=== PATIENT | female | born 1960 | race Two or more races ===

== ENCOUNTER 2025-08-17 14:17 | Emergency (ER) | payer SELFPAY ==
[~2025-08-17] VITALS: Ht 160 cm; Wt 86.2 kg
[2025-08-17 14:43] VITALS: TEMP 98.4
[2025-08-17] MEDS ORDERED: AZIT250T13 PO (15:57)
[2025-08-17] MEDS ORDERED: GUAI1TBM19 PO (15:57)
[2025-08-17] MEDS ORDERED: DOXY100T2 PO (15:57)
[2025-08-17 16:10] VITALS: BP 139/88; O2SAT 98
== END 2025-08-17 16:10 | disposition home or self-care (01) ==
LOC: ER 14:38
DX: J18.9 Pneumonia, unspecified organism (principal); R05.9 Cough, unspecified; Z20.822 Contact with and (suspected) exposure to COVID-19
CPT/HCPCS: 71045-TC